=== PATIENT | female | born 1945 | race Caucasian/White ===

== ENCOUNTER 2017-02-02 17:23 | Inpatient (IN) | payer MEDICARE, OTHER ==
--- NOTE | ~2017-02-02 | CO ---
Unit #: [id number] #: [id number] Patient: ROSALINE DEMPSEY [id number] [facility]. [place], [place] [address] [id number] I MR#: [id number] NAME: ROSALINE DEMPSEY. ROOM: 340 Age: 71 Sex: F Admission Date: 02/02/2017 : 1945 Attending Physician: Bella Mahoney M.D. Primary Care Physician: Swapnil Davison M.D. Consultation Date: 02/04/2017 CONSULTATION REPORT REASON FOR CONSULTATION Mildly elevated troponin. HISTORY OF PRESENT ILLNESS The patient is a 71-year-old female who is known to [facility]. She follows with Dr. Graves. She is status post coronary artery bypass surgery in 08/1998. She has had a multitude of angioplasties since that time with stents in all 3 major coronary arteries. The patient's last intervention was on 04/30/2014. At that time, cath showed an EF of 45% to 50%, severe multivessel disease, critical stenosis of distal left main/ostial circumflex 95% to 98% stenosis, and ISR successful cutting balloon PTCA and drug-eluting stent, codominant left circumflex artery. She has a [employer] permanent pacemaker that was placed on 12/10/2014. Additional past medical history includes ischemic cardiomyopathy, systolic and diastolic CHF, hypertension, hyperlipidemia, diabetes, hypothyroidism, obstructive sleep apnea and does not tolerate CPAP, and COPD. Much of the history was obtained from chart review and previous H and P done by the hospitalist who is following the patient. Apparently, the patient was recently hospitalized at [facility] in 11/2016 for a heart-related issue. She subsequently then went to [facility] where she was discharged to rehab for approximately 2 weeks. The patient was last seen by Dr. Graves on 01/03/2017, while in the hospital. The patient's family reports that she has been confused off and on for the past couple of months and has become increasingly worse over the past 3 or 4 days, and hence, they brought her back to the hospital. In the emergency department, the patient's pulse was found to be 109 and blood pressure 131/88. Her laboratories notable for findings concerning for urinary tract infection. Her sodium was found to be 123 and creatinine of 1.9. She was admitted to [facility] for further evaluation. Cardiology was consulted for troponin of 0.21 and for congestive heart failure. PAST MEDICAL HISTORY 1. Cardiac cath from 04/30/2014 shows an EF of 45% to 50% with severe multivessel disease. Critical stenosis of the distal left main/ostial circumflex of 95% to 98%. ISR successful cutting balloon PTCA and drug-eluting stent. Codominant left circumflex. 2. [employer] permanent pacemaker placed on 12/10/2014. 3. History of CABG in 08/2007, with multi stent placements. 4. Extensive coronary artery disease. 5. Ischemic cardiomyopathy with an LVEF of 30% per echo on 02/04/2017. Unit #: [id number] #: [id number] Patient: ROSALINE DEMPSEY 6. Hypertension. 7. Hyperlipidemia. 8. Anemia. 9. Mild aortic stenosis with peak gradient of 22 mmHg and a mean of 16 mmHg. 10. Yfbcxkjs-fb-frqkkp TR. 11. Hqgc-xn-gfjpqbez WY/MR. 12. Chronic respiratory failure, on 3.5L of oxygen. 13. Obstructive sleep apnea, noncompliant with CPAP. 14. GERD. 15. Recent hospitalization to [facility] from 01/16 through 01/20 for generalized weakness and urinary tract infection with a discharge to rehab. PAST SURGICAL HISTORY 1. Carotid endarterectomy. 2. Hernia repair. 3. Coronary artery bypass grafting. 4. Permanent pacemaker placement. 5. Hysterectomy. 6. Cardiac stents. 7. Foot surgery. ALLERGIES Adhesive tape and latex. HOME MEDICATIONS Synthroid 175 mcg p.o. daily, Bumex 2 mg p.o. b.i.d., Protonix 40 mg p.o. daily, Effient 10 mg p.o. daily, losartan 50 mg p.o. daily, Norvasc 10 mg p.o. daily, aspirin 81 mg p.o. daily, sertraline 75 mg p.o. daily, Aldactone 25 mg p.o. daily, acetazolamide 250 mg p.o. daily, Zanaflex 4 mg p.o. daily, albuterol sulfate one puff every 6 hours, Symbicort 160/4.5 mcg 2 puffs inhalation b.i.d., Wellbutrin 150 mg p.o. b.i.d., Carvedilol 12.5 mg p.o. b.i.d., Ranexa 1000 mg p.o. b.i.d., Imdur-ER 60 mg p.o. b.i.d., digoxin 125 mcg every other day, lovastatin 10 mg p.o. daily, Singulair 10 mg p.o. daily, nitroglycerin 0.4 mg sublingual to take as directed, Ventolin 2 puffs inhalation every 4 hours p.r.n. shortness of breath, next Colace 100 mg p.o. b.i.d., Humibid LA 600 mg p.o. b.i.d., Benadryl 25 mg p.o. q.6 h. p.r.n. itching, Zofran 4 mg p.o. every 6 hours p.r.n. nausea, Icy Hot cream apply 3 times daily p.r.n. to the affected area, NovoLog 70/30 of 10 units subcutaneously daily, NovoLog sliding-scale insulin, and Tylenol 650 mg p.o. q.6 h. p.r.n. pain. FAMILY HISTORY Notable for her mother having Bright disease and dying at the age of 38, her father at the age of 34 of cause unknown. SOCIAL HISTORY The patient is currently at rehab, but typically lives at home with her son. She walks with a walker. She is a full code. She is a reformed smoker. PHYSICAL EXAMINATION GENERAL: The patient is awake, in no acute distress. VITAL SIGNS: Temperature 98.2, heart rate 62, respirations 18, blood pressure 93/46, and she is oxygenating 96%. HEENT: Head is atraumatic and normocephalic. Pupils equal, round, and reactive. Extraocular movements are intact. No drainage from ears or nose. Unit #: [id number] #: [id number] Patient: ROSALINE DEMPSEY NECK: Supple. Trachea is midline. CARDIOVASCULAR: Regular rate and rhythm. LUNGS: Diminished. ABDOMEN: Soft, nontender, and nondistended. Bowel sounds positive in all four quadrants. SKIN: Appears to be warm, dry, and intact. EXTREMITIES: There is +1 bilateral lower extremity edema. NEUROLOGIC: The patient is oriented to person. She is moving all extremities. DIAGNOSTIC STUDIES LABORATORY RESULTS: White blood cells 4.1, hemoglobin 7.3, hematocrit 23.4, and platelets 141. Sodium 132, potassium 4.2, chloride 97, CO2 of 29, BUN 24, creatinine 0.9, and glucose 162. BNP is 1117. Preliminary blood cultures are negative x2. ASSESSMENT 1. Toxic metabolic encephalopathy. 2. Urinary tract infection, culture pending. 3. Acute kidney injury with urinary retention. 4. Volume depletion. 5. Anemia. 6. Troponin of 0.21. 7. Acute likely on chronic systolic congestive heart failure and Left ventricular ejection fraction of 30% per echo in 01/2010. 8. Chronic diastolic congestive heart failure. 9. Ischemic cardiomyopathy. 10. Mild aortic stenosis with peak gradient of 22 mmHg with a mean of 16 mmHg. 11. Rlch-ai-fksiak tricuspid regurgitation. 12. Izas-vu-jgawcvma pulmonary regurgitation/mitral regurgitation. 13. Permanent pacemaker. PLAN At this time, we will continue to follow. Dr. Tong has seen the patient. A repeat 2D echo and Doppler has been ordered. The patient's telemetry is stable at this time. Further recommendations will be dictated for Dr. Tong. Dictated by... Zina Peterson A.P.R.N. for Gagan Tong M.D. AM/murphy TD: 02/06/2017 13:15 JOB #: [id number] CONSULTATION REPORT Page 1 of 1 X Zina Peterson [employer] CONDITIONING [employer]PER[employer] X CONSULTATION REPORT
--- NOTE | ~2017-02-02 | CR72 ---
[facility] A Service of [facility] RADIOLOGY TEXT RESULTS PATIENT: ROSALINE DEMPSEY LOCATION: [facility] 340-01 : 43 UNIT #: [id number] AGE: [address]: Bella Mahoney MD SEX: F ORDER DR: [id number] [facility] [address] [place], [place] [address] [id number] I MR#: [id number] Acc #: [id number] NAME: ROSALINE DEMPSEY. : 1945 SEX: F STUDY DATE/TIME: 02/02/2017 18:41 UNIT: [address] ROOM: [facility] STUDY DESCRIPTION: CR Chest Single View Portable Attending Physician: Janet Maciel M.D. Ordering Physician: Sathya Christopher M.D. Primary Care Physician: Swapnil Davison M.D. MEDICAL IMAGING REPORT This report is preliminary unless electronic signature is present EXAM Portable chest, 02/02/2017 HISTORY 71-year-old female with shortness of air and altered mental status today. Essential hypertension. COPD. COMPARISON Chest 01/17/2017 FINDINGS Frontal chest demonstrates stable cardiomegaly. Mediastinum and pulmonary vasculature unremarkable. Left-sided pacing complex. Median sternotomy wires. Lungs are clear. No pneumothorax. IMPRESSION Stable cardiomegaly. No other acute chest findings. Dictated by... Prem Olivarez M.D. THIS IS AN ELECTRONICALLY VERIFIED REPORT Prem Olivarez M.D. at 02/03/2017 9:11 AM Vishal TD: 02/02/2017 21:56 JOB #: [id number] MEDICAL IMAGING REPORT Page 1 of 1 COPY
--- NOTE | ~2017-02-02 | EKG ---
PATIENT: ROSALINE DEMPSEY UNIT #: [id number] Ventricular Rate: 60 BPM Atrial Rate: 60 BPM P-R Interval: 80 ms QRS Duration: 198 ms Q-T Interval: 476 ms QTC Calculation(Bezet): 476 ms Calculated R [place]: -72 degrees Calculated T [place]: 102 degrees Diagnosis Line: AV dual-paced rhythm Diagnosis Line: Abnormal ECG Diagnosis Line: When compared with ECG of 17-MAY-2012 16:15, Diagnosis Line: No significant change was found Diagnosis Line: Confirmed by ESTELA ORTIZ MD ([id number]) on 02/05/2017 Diagnosis Line: 4:08:39 PM INTERPRETING MD: ANGEL VAZQUEZ
--- NOTE | ~2017-02-02 | CO ---
Unit #: [id number] #: [id number] Patient: ROSALINE VIVAR [id number] [facility]. [place], [place] [address] [id number] I MR#: [id number] NAME: ROSALINE VIVAR. ROOM: 340 Age: 71 Sex: F Admission Date: 02/02/2017 : 1945 Attending Physician: Bella Mahoney M.D. Primary Care Physician: Swapnil Davison M.D. Consultation Date: 02/03/2017 CONSULTATION REPORT REASON FOR CONSULT Renal insufficiency, hyponatremia. Thank you very much for asking me to see this patient in consultation. Ms. Vivar is a 71-year-old female who presented to the hospital from rehab with several weeks of decreasing mental status, worse over the last two to three days. Upon presentation here yesterday, she was noted to have a sodium of 123, BUN of 55, creatinine of 1.9. We were consulted yesterday afternoon or evening. Reviewing the patient's records both here and extensive review at [facility] where she was in in November 2016, she has history of atherosclerotic coronary artery disease with congestive heart failure, decreased EF of 25% there. In November there, she underwent a heart catheterization where she presented for congestive heart failure and, according to the note, it says medical management. She also was dig toxic at that time and she was discharged home on every other day digoxin. She apparently went somewhere to rehab and then maybe back to [facility] or home, not sure after [place], but ended up at [facility] where she apparently weak and had a UTI and was treated with cephalosporin. Currently, she is very confused, difficult to arouse and really won't answer any questions. Again, the rest of the history is from multiple charts. PAST MEDICAL HISTORY 1. History of hypertension. 2. History of hyperlipidemia. 3. History of atherosclerotic coronary artery disease with a history of cardiomyopathy, decreased EF of 25%. 4. Questionable history of endocarditis in the past. She is status post coronary artery bypass graft in the past, status post pacemaker in the past, status post stents in the past. Again, underwent a heart catheterization in November of this year. The patient's creatinine was 1.1 by note when she left [facility]. 5. She has a history of COPD. 6. History of obstructive sleep apnea. 7. History of peripheral vascular disease, status post bilateral endarterectomy. 8. History of gastroesophageal reflux disease, recently active apparently. 9. History of diabetes mellitus. 10. History of degenerative joint disease although I don't see that she has been on any nonsteroidals at this time. 11. She is status post hysterectomy. Unit #: [id number] #: [id number] Patient: ROSALINE VIVAR SOCIAL HISTORY She is a previous smoker. She was living with her son at home before all the hospitalizations and rehab. ALLERGIES Adhesive tape. MEDICATIONS Her medications when she left [place] were: 1. Lipitor. 2. Digoxin every other day. 3. Diamox. 4. Norvasc. 5. Aspirin. 6. Tenormin. 7. Bumex 2 mg, two tablets a day. 8. Wellbutrin. 9. Imdur. 10. Synthroid. 11. Losartan. 12. Protonix. 13. Effient 14. Ranexa. 15. Zoloft. 16. Zanaflex. 17. Also, somewhere along that line she was on spironolactone and Haldol. REVIEW OF SYSTEMS Really unable to obtain except for what is in the HPI. FAMILY HISTORY Unable to obtain. PHYSICAL EXAMINATION GENERAL: Again, she is confused. Difficult to arouse although appears comfortable. VITAL SIGNS: T max is 98.7, pulse is 60 to 109, blood pressure 97 to 131/40s to 90s. Ins not recorded, out 900. HEENT: She is normocephalic, atraumatic. Her pupils are equal and reactive to light. Her mouth is very dry. No erythema. NECK: Supple. No adenopathy. CARDIAC: She does have a regular rate and rhythm with about a 2/6 systolic ejection murmur. LUNGS: Sound fairly clear bilaterally. No wheezes, rhonchi or rales. ABDOMEN: Overweight. Bowel sounds positive. Nontender, soft. No masses felt, no hepato or organomegaly noted. EXTREMITIES: She has no lower extremity swelling. Her pulses are intact in upper and lower extremities. JOINTS: No joint pain or joint swelling. SKIN: No acute rashes. NEUROLOGICAL: Again, decreased response. : Rene catheter is in place. DIAGNOSTIC STUDIES LABORATORY: Laboratory data upon admission showed a sodium of 123, BUN of 55, creatinine of 1.9, creatinine up to 2.0 yesterday and this morning is down to 1.8. Sodium was 126 at 7:50 p.m. last night and is up to 128 now. She is currently on half normal saline at 75. Her CPK was 225, troponin Unit #: [id number] #: [id number] Patient: ROSALINE VIVAR 0.12. T-saturation was 3. TSH 5.38. Dig level was 2 upon admission. Her urine osmolarity is pending. Urine sodium as 31, hemoglobin 8.3 this morning, white count 6000, platelets 164,000. UA shows specific gravity of 1.01, no protein, 10-25 WBCs, 1+ bacteria, no RBCs. IMAGING: Her chest x-ray showed cardiomegaly only. ASSESSMENT AND PLAN 1. Hyponatremia: This is a lady who has decreased sodium upon presentation although low. I am not convinced that this is the major cause of her mental status changes. It is improving very slowly and I am going to switch her over to normal saline at 75 mL/hour and recheck a BMP later this afternoon. Certainly, she appears to probably have hypovolemic hyponatremia from decreased intake, possible overdiuresis although certainly can't rule out an syndrome of inappropriate antidiuretic hormone from her selective serotonin reuptake inhibitor or chronic obstructive pulmonary disease. Again, would have to watch for congestive heart failure with some normal saline. Certainly, will hold her Zoloft for now as well hold her Bumex, Diamox. TSH was normal. Will check a cortisol level in a.m. Wait for urine osmolarity. 2. Acute renal failure, probably secondary to volume depletion and over diuresis: She did have a heart catheterization in November and, theoretically, she could have maybe some sort of cholesterol emboli syndrome. I will go ahead and check a urine eosinophils. I do think acute renal failure is probably again related to over diuresis versus other. Again, will hold her diuretics, mild hydration, but again watch for congestive heart failure. DC her losartan for now. Check a renal ultrasound. I will check an SPEP due to her being anemic. Her urine from the renal standpoint, besides possible UTI, she had no hematuria or proteinuria so I doubt she has any type of active glomerulonephritis. Again, will check renal ultrasound and will follow. 3. Heart disease, all outlined above: Certainly when restarting her Lanoxin again once a day, she was toxic according to [place] notes. I certainly would recommend every other day. Further workup and treatment for cardiac issues per primary. 4. Decreased mental status: Again, will also DC her Zanaflex and her Benadryl. Further workup and treatment per primary. Again, improving sodium slowly. 5. Diabetes mellitus. 6. Possible urinary tract infection: Will repeat urine culture. The first one just showed kayla. 7. Gastroesophageal reflux disease: Will keep her on her PPI for now unless her renal function does not improve secondary to it sounds like she had recent acute severe reflux problems, according to the [place] note. 8. Chronic obstructive pulmonary disease. 9. Obstructive sleep apnea. Unit #: [id number] #: [id number] Patient: ROSALINE VIVAR Dictated by..Zuleima Mccallum/gavin TD: 02/03/2017 08:59 JOB #: [id number] CONSULTATION REPORT Page 1 of 1 X Shira Barrios MD X CONSULTATION REPORT
--- NOTE | ~2017-02-02 | DS ---
Unit #: [id number] #: [id number] Patient: ROSALINE DEMPSEY [id number] [address] [id number] I MR#: [id number] NAME: ROSALINE DEMPSEY ROOM: 340 Age: 71 Sex: F Admission Date: 02/02/2017 : 1945 Discharge Date: Attending Physician: Bella Mahoney M.D. Primary Care Physician: Swapnil Davison M.D. DISCHARGE SUMMARY DISCHARGE DIAGNOSES 1. Acute kidney injury. 2. Urinary retention. 3. Hypovolemic shock. 4. Cardiogenic shock. 5. Toxic metabolic encephalopathy. 6. Hyponatremia secondary to hypovolemia. 7. Vancomycin-resistant Enterococcus urinary tract infection. 8. Acute on chronic systolic heart failure. 9. Acute iron deficiency anemia. 10. Coronary artery disease. 11. Morbid obesity. 12. Chronic obstructive pulmonary disease. 13. Elevated troponins. 14. Hyperkalemia. CONSULTANTS 1. Dr. Barrios 2. Dr. Damon Chowdhury 3. Dr. Heredia PROCEDURE Upper GI endoscopy which was normal. DIAGNOSTIC STUDIES LABORATORY: Glucose 105. Blood cultures negative. Urine culture is vancomycin-resistant Enterococcus. BNP 1117. IMAGING: Ultrasound of the kidneys showed no hydronephrosis. ALLERGIES Adhesive tape and Latex. DISCHARGE MEDICATIONS 1. Albuterol 3 mL nebulizer q.6. 2. Symbicort 160 mcg 2 puffs inhalation b.i.d. 3. Flomax 0.4 p.o. daily. 4. Tylenol 650 q.4 p.r.n. 5. Zyvox 600 p.o. b.i.d., stop date February 17, 2017. 6. Zofran 4 mg q.4 p.r.n. nausea. 7. Menthol cream apply topically 3 times daily p.r.n. 8. Coreg 12.5 mg p.o. b.i.d. 9. Acetazolamide 250 mg p.o. daily. 10. Colace 100 p.o. b.i.d. p.r.n. Unit #: [id number] #: [id number] Patient: DEMPSEY,ROSALINE A 11. Bumex 2 mg p.o. b.i.d. 12. Humibid LA 600 p.o. b.i.d. p.r.n. 13. Lovastatin 10 daily. 14. NovoLog low-dose sliding scale a.c. and at bedtime. 15. Singulair 10 daily. 16. Aspirin 81 daily. 17. Ranexa 1000 p.o. b.i.d. 18. Effient 10 mg daily. 19. Protonix 40 daily. 20. Synthroid 175 mcg p.o. daily. 21. Imdur ER 60 mg p.o. b.i.d. 22. Nitroglycerin 0.4 mg sublingual p.r.n. HOSPITAL COURSE A 71-year-old admitted because of change in mental and urinary retention. Acute on chronic systolic heart failure. Patient was seen by Cardiology. Patient received diuretics. Currently compensated. She also received IV dobutamine which is off now. Hypovolemic shock initially on admission. Patient received IV fluids. Currently, blood pressure stable. Cardiogenic shock. Patient received IV dobutamine. Currently compensated. Hypovolemic hyponatremia likely from CHF. Got better with diuretics. Urinary tract infection with vancomycin-resistant Enterococcus. Currently, patient is on Zyvox. Continue with it. Chronic respiratory failure. Continue oxygen. Acute kidney injury likely from CHF. Patient received diuretics. Compensated. Toxic metabolic encephalopathy. On admission, patient was confused. Currently, she is alert and oriented x3. Urinary retention. Patient received Flomax and Rene catheter. Voiding trial before discharge or at rehab. Anemia, likely acute on chronic iron deficiency. Patient had an EGD which was negative. Patient is not a candidate for colonoscopy because of comorbidities according to Dr. Chowdhury. Chronic obstructive pulmonary disease, stable. Diabetes mellitus type 2, uncontrolled. Continue with insulin. Discussed with family. FOLLOWUP With Dr. Graves in four to six week's time. DISPOSITION Patient will be discharged to rehab. Discharge time taken is 40 minutes. Unit #: [id number] #: [id number] Patient: ROSALINE DEMPSEY Dictated by... Zuleima Cabrera TD: 02/08/2017 17:28 JOB #: [id number] CC: Zuleima Falcon M.D. Ashok Kapur, M.D. Dictated by... Zuleima Cabrera TD: 02/08/2017 17:43 JOB #: [id number] CC: Zuleima Falcon M.D. Ashok Kapur, M.D. DISCHARGE SUMMARY Page 1 of 1 X Bella Mahoney MD X DISCHARGE SUMMARY
--- NOTE | ~2017-02-02 | CO ---
Unit #: [id number] #: [id number] Patient: ROSALINE VIVAR [id number] [address] [address] [id number] I MR#: [id number] NAME: ROSALINE VIVAR. ROOM: 340 Age: 71 Sex: F Admission Date: 02/02/2017 : 1945 Attending Physician: Bella Mahoney M.D. Primary Care Physician: Swapnil Davison M.D. Consultation Date: 02/05/2017 CONSULTATION REPORT REASON FOR CONSULTATION Anemia. HISTORY Ms. Vivar is a very pleasant 71-year-old white female patient sitting up in chair and, according to her, she normally walks around inside the house and is usually active. She came with acute kidney injury and has significant congestive heart failure with an ejection fraction of 25%. During her evaluation, she has been found to be anemic. In fact, her hemoglobin had dropped from baseline hemoglobin on admission from 9 to 7.3. Her hemoglobin in the past has been as high as 12 but that was several years ago. The patient denies any history of overt GI bleeding in the form of hematemesis, melena or hematochezia. There is also no history of any abdominal pain. Her appetite is generally fairly good. PAST MEDICAL HISTORY Significant for multiple medical problems and these include: 1. Congestive heart failure with ejection fraction of 25%. She sees Dr. Graves and Dr. Talavera. 2. Coronary artery disease, status post coronary artery bypass graft with multiple stents. 3. Hypertension. 4. Hyperlipidemia. 5. COPD. 6. Chronic respiratory failure on 3.5 L of home oxygen. 7. Obstructive sleep apnea. The patient is noncompliant with CPAP therapy. 8. Peripheral arterial disease, status post endarterectomy and diabetes. 9. Gastroesophageal reflux. 10. History of degenerative joint disease. 11. History of endocarditis. 12. History of urinary tract infections in the past. PREVIOUS SURGERIES 1. Hysterectomy. 2. Foot surgery. 3. Coronary artery bypass graft. 4. Pacemaker placement. 5. Herniorrhaphy. 6. Carotid endarterectomy. SOCIAL HISTORY Unit #: [id number] #: [id number] Patient: ROSALINE VIVAR The patient is currently at rehab. She walks around with a walker. She is an ex-smoker, doesn't drink alcohol. FAMILY HISTORY Mother had Bright disease, dying at the age of 38. Father at age 34. MEDICATIONS Her medications at home included: 1. Bumex. 2. Pantoprazole. 3. Effient. 4. Losartan. 5. Acetazolamide. 6. Levothyroxine. 7. Amlodipine. 8. Aspirin. 9. Sertraline. 10. Spironolactone. Tizanidine. 11. Albuterol. 12. Symbicort. 13. Bupropion. 14. Carvedilol. 15. Ranexa. 16. Isosorbide. 17. Rocephin. 18. Haldol. 19. Digoxin. 20. Lovastatin. 21. Montelukast. 22. Nitroglycerin. 23. Acetaminophen. 24. Ventolin. 25. Mucinex. 26. Benadryl. 27. Zofran. 28. NovoLog. 29. Docusate. ALLERGIES She is allergic to latex and adhesive tape. REVIEW OF SYSTEMS A detailed review of organ systems does not reveal any recent weight loss. No history of fevers, chills, rigors, headaches, seizures, chest pain. No syncope. No history of cough, expectoration or hemoptysis. No Please note: This report has been placed on the patient's electronic medical record in an incomplete status following multiple physician notifications for a completion without a response or resolution. Dictated by... Damon Chowdhury M.D. Unit #: [id number] #: [id number] Patient: ROSALINE VIVAR/gavin TD: 02/05/2017 13:20 JOB #: [id number] CC: Froilan Hurd M.D. CONSULTATION REPORT Page 1 of 1 X Damon Chowdhury MD X CONSULTATION REPORT
--- NOTE | ~2017-02-02 | OR ---
Unit #: [id number] #: [id number] Patient: ROSALINE DEMPSEY [id number] [address] [place], [place] [address] [id number] I MR#: [id number] NAME: ROSALINE DEMPSEY. ROOM: [facility] Date of Procedure: 02/05/2017 Admission Date: 02/02/2017 Surgeon: Damon Chowdhury M.D. : 1945 Attending Physician: Bella Mahoney M.D. Primary Care Physician: Swapnil Davison M.D. OPERATIVE REPORT PRIMARY CARE PHYSICIAN MD2U. PREOPERATIVE DIAGNOSIS Iron-deficiency anemia. PROCEDURE PERFORMED Upper gastrointestinal endoscopy. POSTOPERATIVE DIAGNOSIS Completely normal examination up to third part of duodenum. RECOMMENDATIONS The patient is a poor surgical risk candidate for any intervention, therefore colonoscopy is , therefore it is unwarranted. Suggest treat with intravenous iron infusions and blood transfusion as needed. SEDATION USED Procedural sedation. A total of 2.5 mg of versed was used throughout the procedure. DESCRIPTION OF PROCEDURE Following detailed explanation of the potential risks and complications of an upper endoscopy, namely perforation, bleeding, and complication related to sedation, the patient was brought to GI lab and laid in the left lateral decubitus position. Lubricated tip of the Olympus video upper endoscope was passed through the bite block into the proximal esophagus under direct vision. The entire esophageal mucosa was examined and appeared normal. Z-line was nicely demarcated, there being no esophagitis or hiatus hernia. The scope was then advanced into the gastric cavity and the latter was insufflated. Mucosa of the fundus, body, and antrum was examined and appeared unremarkable. Pylorus was intubated with visualization of normal duodenal bulb and second and third part of the duodenum. Upon withdrawal and retroflexion, incisura, cardia, and greater curve was examined and no additional findings were noted. The scope was then withdrawn in the distal esophagus. The entire esophageal mucosa was examined all the way up to pharynx. No additional findings were noted. The patient tolerated the procedure without any postprocedure complications. Dictated by... Unit #: [id number] #: [id number] Patient: ROSALINE DEMPSEY Damon Chowdhury M.D. AK/murphy TD: 02/05/2017 13:14 JOB #: [id number] CC: Janet Maciel M.D. OPERATIVE REPORT Page 1 of 1 X Damon Chowdhury MD X PROCEDURE OPERATIVE NOTE
--- NOTE | ~2017-02-02 | HP ---
Unit #: [id number] #: [id number] Patient: ROSALINE DEMPSEY [id number] [facility]. [place], [place] [address] [id number] I MR#: [id number] NAME: ROSALINE DEMPSEY. ROOM: 340 Age: 71 Sex: F Admission Date: 02/02/2017 : 1945 Attending Physician: Janet Maciel M.D. Primary Care Physician: Swapnil Davison M.D. HISTORY AND PHYSICAL CHIEF COMPLAINT Altered mental status. HISTORY OF PRESENT ILLNESS The patient is a 71-year-old female with past medical history of hypertension, hyperlipidemia, coronary artery disease, CHF, COPD, chronic respiratory failure, obstructive sleep apnea, peripheral arterial disease, diabetes, GERD, degenerative joint disease, endocarditis, who presented to the emergency department for evaluation of the above. History is obtained from chart review and discussion with the ER staff due to the patient's altered mental status. History is also obtained from the patient's sister, Cesia Chase, who was at bedside. The patient was apparently hospitalized at [facility] in November of 2016 for a heart related issue. She subsequently went to [facility]. She was discharged to rehab about two weeks ago. The patient's sister states that she has been confused off and on for the past couple of months. She became increasingly worse over the past three to four days. She has been somewhat agitated, said there has not been any fever, no cough. She has not complained of any pain. In the emergency department pulse was 109, blood pressure 131/88. Laboratory is notable for findings concerning for urinary tract infection, sodium is 123, BUN and creatinine 56 and 1.9 respectively. She is being admitted to [facility] for evaluation and further treatment. PAST MEDICAL HISTORY 1. Admission to [facility] January 16-2016 for generalized weakness and urinary tract infection. The patient was discharged to rehab on Ceftin. There are no records. 2. CHF with unknown ejection fraction, followed by Drs. Graves and Ilan. 3. Coronary artery disease, status post coronary artery bypass grafting and multiple cardiac stents. 4. Hypertension. 5. Hyperlipidemia. 6. COPD. 7. Chronic respiratory failure on 3.5 L of oxygen. 8. Obstructive sleep apnea, noncompliant with CPAP. 9. Peripheral artery disease, status post carotid endarterectomy. 10. Diabetes. 11. Gastroesophageal reflux disease. 12. Degenerative joint disease. Unit #: [id number] #: [id number] Patient: ROSALINE DEMPSEY 13. History of endocarditis per record review. PAST SURGICAL HISTORY 1. Carotid endarterectomy. 2. Hernia repair. 3. Coronary artery bypass grafting. 4. Pacemaker placement. 5. Hysterectomy. 6. Cardiac stents. 7. Foot surgery. SOCIAL HISTORY The patient is currently at rehab but she typically lives at home with her son. She walks with a walker. Her code status is a Full Code. She is a former smoker. FAMILY HISTORY Family history is notable for her mother having Bright disease and dying at the age of 38. Her dad at the age of 34. ALLERGIES Adhesive tape and latex. HOME MEDICATIONS Levothyroxine, Bumex, pantoprazole, Effient, losartan, acetazolamide, amlodipine, aspirin, sertraline, spironolactone, tizanidine, albuterol, Symbicort, bupropion, carvedilol, Ranexa, isosorbide, Rocephin, Haldol, digoxin, lovastatin, montelukast, nitroglycerin, acetaminophen, Ventolin, docusate, Mucinex, Benadryl, Zofran, NovoLog. Home medications will need to be reviewed and verified. REVIEW OF SYSTEMS A complete review of systems is limited from the patient due to altered mental status but negative except as indicated in the HPI per the patient's sister. DIAGNOSTIC STUDIES CARDIOVASCULAR: EKG shows paced rhythm with a rate of 60 beats per minute. LABORATORY: Basic metabolic panel shows sodium of 123, chloride is 85, glucose 150, BUN and creatinine 56 and 1.9 respectively, digoxin level is 2. Urinalysis notable for 1+ leukocyte esterase, 10 to 25 white blood cells, 1+ bacteria, magnesium is 2.5. Complete blood count notable for white blood cell count of 3.8, hemoglobin 7.9, hematocrit 24.8. PHYSICAL EXAMINATION VITAL SIGNS: Temperature is 98.7. Pulse 109. Respirations 16. Blood pressure 131/88. Oxygen saturation 96% on 4 L. GENERAL: The patient is a female who is awake and alert, somewhat restless. HEENT: The head is atraumatic. Mucous membranes are moist. NECK: Neck is supple. Trachea is midline. CARDIOVASCULAR: Regular rate and rhythm. LUNGS: Relatively clear to auscultation bilaterally with no increased work of breathing. ABDOMEN: Abdomen is soft, nontender, with bowel sounds present in all Unit #: [id number] #: [id number] Patient: ROSALINE DEMPSEY four quadrants. EXTREMITIES: There is 1+ pitting edema of bilateral lower extremities. NEUROLOGIC: The patient is not oriented to person and place or time. She is restless and somewhat agitated, inattentive. She is moving all extremities. PSYCHIATRIC: The patient demonstrates poor eye contact. She is not cooperative. SKIN: Skin of examined areas is warm and dry. ASSESSMENT The patient is a 71-year-old female with: 1. Altered mental status. 2. Urinary tract infection. Rocephin is listed on the patient's current medication list. It is unclear when she last received Rocephin. 3. Acute kidney injury. The patient's creatinine was 0.6 on November 14, 2012. It is 1.9 today. 4. Hyponatremia. The patient's sodium has been as low as 126 on May 17, 2012. It is 123 today. 5. Anemia. The patient's hemoglobin was 11.3 on November 14, 2012. It is 7.9 today. 6. Hypertension. 7. Hyperlipidemia. 8. Coronary artery disease, status post coronary artery bypass grafting and multiple stents. 9. Congestive heart failure with unknown ejection fraction. 10. Chronic obstructive pulmonary disease. 11. Chronic respiratory failure on 3.5 to 4 L of oxygen per nasal cannula. 12. Obstructive sleep apnea, noncompliant with CPAP. 13. Peripheral arterial disease, status post carotid endarterectomy. 14. Diabetes. 15. Gastroesophageal reflux disease. 16. Degenerative joint disease. 17. History of endocarditis. 18. Former smoker. PLAN 1. Admit to intermediate level. 2. N.p.o. except medications until speech evaluation. 3. Speech Therapy to evaluate and treat. 4. Bedrest. 5. Fall precautions. 6. Neuro checks. 7. TSH, B12 and folate. 8. Blood cultures x2. 9. Urine culture and sensitivity on urine in the lab. 10. Rocephin 1 g IV daily with first dose now. 11. Sitter. 12. Urine sodium and osmolality. 13. Serum osmolality. 14. Chest x-ray for further evaluation of hyponatremia and altered mental status. 15. Normal saline at 75 mL an hour. 16. Repeat BMP and magnesium now. 17. Consult Dr. Barrios regarding hyponatremia. 18. Strict Is and Os. 19. Check EKG and cardiac enzymes. 20. Get records from [facility]. Unit #: [id number] #: [id number] Patient: ROSALINE DEMPSEY 21. Supplemental oxygen. 22. P.r.n. DuoNebs. 23. Hemoglobin and hematocrit q.6 h. 24. Hemoccult stool. 25. Iron studies. 26. Hemoglobin A1C. 27. Low dose sliding-scale insulin with Accu-Cheks. 28. Repeat labs in the morning. 29. Additional workup and consultants based on above. 30. Regarding code status, the patient is a Full Code. Dictated by Janet Maciel M.D. PATTIE/andrew TD: 02/02/2017 21:27 JOB #: [id number] HISTORY AND PHYSICAL Page 1 of 1 X Janet Maciel MD X HISTORY AND PHYSICAL
--- NOTE | ~2017-02-02 | CR72 ---
[facility] A Service of [facility] RADIOLOGY TEXT RESULTS PATIENT: ROSALINE DEMPSEY LOCATION: [facility] 340-01 : [birth year] UNIT #: [id number] AGE: [address]: Bella Mahoney MD SEX: F ORDER DR: [id number] [facility] [address] [place], [place] [address] [id number] I MR#: [id number] Acc #: [id number] NAME: ROSALINE DEMPSEY : 1945 SEX: F STUDY DATE/TIME: 02/05/2017 19:11 UNIT: [address] ROOM: [facility] STUDY DESCRIPTION: CR Chest Single View Portable Attending Physician: Bella Mahoney M.D. Ordering Physician: Bella Mahoney M.D. Primary Care Physician: Swapnil Davison M.D. MEDICAL IMAGING REPORT This report is preliminary unless electronic signature is present EXAM Single view of the chest, 02/05/2017 at 1911 hours. COMPARISON Single view chest dated 02/02/2017 at 1841 hours. HISTORY PICC placement. FINDINGS Single view of the chest was obtained. New right subclavian approach PICC line catheter tip is probably in the SVC. There are overlying pacemaker leads slightly limiting evaluation. Postoperative cardiac changes are redemonstrated with stable cardiomegaly. No significant new pulmonary disease. Dictated by... Dona Lawson M.D. THIS IS AN ELECTRONICALLY VERIFIED REPORT Dona Lawson M.D. at 02/06/2017 5:13 PM CPR/ljd TD: 02/06/2017 03:12 JOB #: [id number] MEDICAL IMAGING REPORT Page 1 of 1 COPY
--- NOTE | ~2017-02-02 | US77 ---
[facility] A Service of [facility] RADIOLOGY TEXT RESULTS PATIENT: ROSALINE DEMPSEY LOCATION: [facility] 340- : 43 UNIT #: [id number] AGE: [address]: Bella Mahoney MD SEX: F ORDER DR: [id number] [facility] [address] [place], [place] [address] [id number] I MR#: [id number] Acc #: [id number] NAME: ROSALINE DEMPSEY : 1945 SEX: F STUDY DATE/TIME: 02/03/2017 9:42 UNIT: [address] ROOM: [facility] STUDY DESCRIPTION: US Kidney Bilateral Complete Attending Physician: Bella Mahoney M.D. Ordering Physician: Bella Mahoney M.D. Primary Care Physician: Swapnil Davison M.D. MEDICAL IMAGING REPORT This report is preliminary unless electronic signature is present EXAM Bilateral renal ultrasound. HISTORY Acute renal failure. Elevated creatinine. FINDINGS Ultrasound examination of both kidneys demonstrates no renal mass. No hydronephrosis. Mild generalized bilateral renal parenchymal atrophy. 1.4 cm cortical cyst mid right kidney. Urinary bladder is decompressed by a Rene catheter. No perinephric fluid collection. IMPRESSION 1. Mild bilateral renal parenchymal atrophy. 2. No hydronephrosis. No suspicious renal mass. 3. Incidental small right renal cyst. 4. The urinary bladder is decompressed by a Rene catheter. Dictated by... Carlos Dean M.D. THIS IS AN ELECTRONICALLY VERIFIED REPORT Carlos Dean M.D. at 02/03/2017 11:10 PM MARYCRUZ/vick TD: 02/03/2017 17:11 JOB #: [id number] MEDICAL IMAGING REPORT Page 1 of 1 COPY
[~2017-02-02 17:23] MED LIST: ADALATCC; ADALATCC PO; ALBUTEROL17 GM INH; ASPIRIN ENTERI325 M1 PO; ASPIRIN PO; ASPIRINEC; ATENOLOL; ATENOLOL PO; ATENOLOL25 MG PO; BUSPAR PO; BUSPAR15 MG PO; CALCIUM + VITAM1 TAB PO; CALCIUM CITRATE1 T12 PO; CARDURA2 MG PO; CETIRIZINE HCL10 MG PO; CLARITIN10 MG PO; COLACE PO; COMBIVENT MININEB INH; CYANOCOBAL1000 MCG/M INJ; CYANOCOBAL1000 MCG/M SUBQ; DIGOXIN125 MCG PO; DOC-Q-LACE100 MG PO; DOXAZOSIN MESYLA2 MG PO; FUROSEMIDE40 MG PO; HUMALOG MIX 75/10 ML SUBQ; HUMALOG MIX 75/23 ML SUBQ; HUMULIN 70/30 V10 ML; HYDROCODON-ACE1 EAC3 PO; HYDROXYZINE HCL25 M1 PO; IMDUR; IMDUR PO; IMDUR-ER60 MG PO; ISONIAZID300 MG PO; ISOSORBIDE MONO60 M1 PO; KEFLEX PO; LANOXIN; LANOXIN PO; LASIX PO; LASIX20 MG PO; LEVAQUIN PO; LEVOTHROID125 MCG PO; LISINOPRIL; LISINOPRIL PO; LORTAB 10/500 T1 TAB; MEDROL PO; MUCINEX DM1 TAB.SR .; MUCINEX PO; MUCOSA400 MG PO; MYCOSTATIN15 GM; MYSOLINE250 M1 PO; NASACORT AQ16.5 GM; NASONEX17 GM; NASONEX17 GM IH; NIFEDIPINE ER90 M1 PO; NITROGYLCERIN; NITROGYLCERIN SUBLINGUAL; NITROSTAT0.4 MG SL; NOVOLIN 70/30 V10 ML INJ; NOVOLOG MI100 UNIT/1 SQ; PACERONE PO; PHENERGAN PO; PLAVIX; PLAVIX PO; PRILOSEC; PRILOSEC PO; PRIMIDONE250 MG PO; RANEXA PO; RANEXA1000 MG PO; RANITIDINE HCL150 M1 PO; REGLAN; REGLAN PO; RESTORIL15 MG PO; SERTRALINE HCL50 M1 PO; SIMVASTATIN40 MG PO; SYMBICORT80 INH; SYNTHROID; SYNTHROID PO; TEMAZEPAM; TEMAZEPAM PO; TEMOVATE30 GM TOP; TYLENOL325 M1 PO; VESICARE PO; VICODIN 5/500 T1 TAB PO; ZANAFLEX; ZANAFLEX PO; ZANAFLEX4 M1 PO; ZOCOR PO; ZOFRAN PO; ZOLOFT; ZOLOFT PO; [UNRECOGNIZED DRUG - OTHER]; [UNRECOGNIZED DRUG - OTHER]; [UNRECOGNIZED DRUG - REMARK]
[2017-02-02] MEDS ORDERED: SYNTHROID175 MCG PO (19:52)
[2017-02-02] MEDS ORDERED: PROTONIX PO (19:52)
[2017-02-02] MEDS ORDERED: BUMEX2 MG PO (19:52)
[2017-02-02] MEDS ORDERED: EFFIENT10 MG PO (19:52)
[2017-02-02] MEDS ORDERED: LOSARTAN POTASS50 MG PO (19:53)
[2017-02-02] MEDS ORDERED: ALDACTONE25 MG PO (19:53)
[2017-02-02] MEDS ORDERED: SERTRALINE HCL25 M2 PO (19:53)
[2017-02-02] MEDS ORDERED: ACETAZOLAMIDE250 MG PO (19:53)
[2017-02-02] MEDS ORDERED: BAYER CHEWABLE81 MG PO (19:53)
[2017-02-02] MEDS ORDERED: NORVASC10 MG PO (19:53)
[2017-02-02] MEDS ORDERED: ALBUTEROL2.5 MG/3 M INH (19:54)
[2017-02-02] MEDS ORDERED: ZANAFLEX4 M1 PO (19:54)
[2017-02-02] MEDS ORDERED: SYMBICORT INH (19:54)
[2017-02-02] MEDS ORDERED: RANEXA1000 MG PO (19:55)
[2017-02-02] MEDS ORDERED: IMDUR-ER60 M2 PO (19:55)
[2017-02-02] MEDS ORDERED: COREG12.5 MG PO (19:55)
[2017-02-02] MEDS ORDERED: WELLBUTRIN SR150 M1 PO (19:55)
[2017-02-02] MEDS ORDERED: DIGITEK125 MC1 PO (19:56)
[2017-02-02] MEDS ORDERED: MONTELUKAST SOD10 MG PO (19:56)
[2017-02-02] MEDS ORDERED: NITROGLYGERIN0.4 MG SL (19:56)
[2017-02-02] MEDS ORDERED: LOVASTATIN10 MG PO (19:56)
[2017-02-02] MEDS ORDERED: ALBUTEROL17 GM INH (19:57)
[2017-02-02] MEDS ORDERED: DOCUSATE SODIU100 MG PO (19:57)
[2017-02-02] MEDS ORDERED: ZOFRAN PO (19:58)
[2017-02-02] MEDS ORDERED: BENADRYL25 M3 PO (19:58)
[2017-02-02] MEDS ORDERED: HUMIBID-LA600 MG PO (19:58)
[2017-02-02] MEDS ORDERED: NOVOLOG7030 SUBQ (19:59)
[2017-02-02] MEDS ORDERED: ICY HOT CREAM35.4 GM TOP (19:59)
[2017-02-02] MEDS ORDERED: NOVOLOG100 U/ML (20:00)
[2017-02-02] MEDS ORDERED: TYLENOL325 M1 PO (20:01)
[2017-02-02 20:42] LABS: CALCIUM SERUM 8.8 mg/dL (8.4-10.2); GLOM FILT RATE Estimated 24.2 mL/min (>60); MAGNESIUM 2.7 mg/dL (1.6-3.0); POTASSIUM 5.1 mmol/L (3.5-5.1)
[2017-02-02 21:00] LABS: MB 8.1 ng/ml
[2017-02-02 22:10] LABS: HEMATOCRIT 24.7 % (35.0-45.0); HEMOGLOBIN 7.8 gm/dL (12.0-16.0)
[2017-02-02 22:54] LABS: IRON SERUM 13 ug/dL (28-170); TOTAL IRON BINDING CAPACITY 421 ug/dL (269-535); TRANSFERRIN 300 mg/dL (192-382); TRANSFERRIN SATURATION 3 % (20-50)
[2017-02-02 23:15] LABS: FOLATE (FOLIC ACID) 12.1 ng/mL (>5.8)
[2017-02-03 03:24] LABS: HEMATOCRIT 25.9 % (35.0-45.0); HEMOGLOBIN 8.3 gm/dL (12.0-16.0); MEAN CELL VOLUME 89.5 FL (83-96); MEAN CORPUSCULAR HEMOGLOBIN 28.5 PG (28-34); MEAN CORPUSCULAR HGB CONC 31.9 g/dL (30-36); MEAN PLATELET VOLUME 9.7 FL (6.5-11.5); RED BLOOD COUNT 2.9 X10e (3.90-5.30); RED CELL DISTRIBUTION WIDTH 18.4 % (11.0-15.5)
[2017-02-03 03:46] LABS: ALBUMIN SERUM 3.9 g/dL (3.5-5.0); BUN/CREATININE RATIO 33.33; CALCIUM SERUM 8.6 mg/dL (8.4-10.2); CREATININE SERUM 1.8 mg/dL (0.6-1.4); GLOM FILT RATE Estimated 27.4 mL/min (>60); POTASSIUM 4.4 mmol/L (3.5-5.1); PROTEIN TOTAL SERUM 6.3 g/dL (6.0-8.3)
[2017-02-03 04:06] LABS: %MB 3.3 % (0.0-4.0); MB 7.4 ng/ml
[2017-02-03 07:01] LABS: SODIUM URINE RANDOM 31 mmol/L
[2017-02-03 09:01] LABS: OSMOLALITY,URINE 395 mOsmo/kg (250-900)
[2017-02-03 09:13] LABS: HEMATOCRIT 29.3 % (35.0-45.0); HEMOGLOBIN 9.1 gm/dL (12.0-16.0)
[2017-02-03 10:02] LABS: %MB 3.2 % (0.0-4.0); MB 9.4 ng/ml
[2017-02-03 14:39] LABS: BUN/CREATININE RATIO 32.5; CALCIUM SERUM 8.8 mg/dL (8.4-10.2); CREATININE SERUM 1.6 mg/dL (0.6-1.4); GLOM FILT RATE Estimated 31.6 mL/min (>60); POTASSIUM 4.7 mmol/L (3.5-5.1)
[2017-02-03 15:02] LABS: HEMOGLOBIN 8.8 gm/dL (12.0-16.0)
[2017-02-04 07:04] LABS: HEMATOCRIT 24.4 % (35.0-45.0); HEMOGLOBIN 7.6 gm/dL (12.0-16.0); MEAN CELL VOLUME 89.9 FL (83-96); MEAN CORPUSCULAR HEMOGLOBIN 28.1 PG (28-34); MEAN CORPUSCULAR HGB CONC 31.3 g/dL (30-36); MEAN PLATELET VOLUME 8.8 FL (6.5-11.5); RED BLOOD COUNT 2.71 X10e (3.90-5.30); RED CELL DISTRIBUTION WIDTH 18.2 % (11.0-15.5); WHITE BLOOD COUNT 4.1 X10e3 (4.0-10.5)
[2017-02-04 08:26] LABS: ALBUMIN SERUM 3.3 g/dL (3.5-5.0); BILIRUBIN,TOTAL 0.7 mg/dL (0.2-2.0); BUN/CREATININE RATIO 29.16; CALCIUM SERUM 8.1 mg/dL (8.4-10.2); CREATININE SERUM 1.2 mg/dL (0.6-1.4); GLOM FILT RATE Estimated 44.8 mL/min (>60); MAGNESIUM 2.3 mg/dL (1.6-3.0); PHOSPHOROUS 3.1 mg/dL (2.5-4.6); POTASSIUM 4.1 mmol/L (3.5-5.1)
[2017-02-04 23:56] LABS: CALCIUM SERUM 8.3 mg/dL (8.4-10.2); CREATININE SERUM 0.9 mg/dL (0.6-1.4); GLOM FILT RATE Estimated 63.5 mL/min (>60); POTASSIUM 4.2 mmol/L (3.5-5.1)
[2017-02-05 05:42] LABS: BASOPHIL% 0.3 % (0-2.5); EOSINOPHIL# 0.2 X10e3 (0-0.7); EOSINOPHIL% 3.7 % (0.0-7.0); HEMATOCRIT 23.4 % (35.0-45.0); HEMOGLOBIN 7.3 gm/dL (12.0-16.0); LYMPHOCYTE# 0.4 X10e3 (1.0-3.5); MEAN CELL VOLUME 89.9 FL (83-96); MEAN CORPUSCULAR HGB CONC 31.2 g/dL (30-36); MONOCYTE# 0.3 X10e3 (0-1.0); MONOCYTE% 8.2 % (3.0-12.0); NEUTROPHIL# 3.2 X10e3 (1.5-7.1); NEUTROPHIL% 78.8 % (40-75); PLATELET COUNT 141 X10e3 (140-420); RED BLOOD COUNT 2.61 X10e (3.90-5.30); RED CELL DISTRIBUTION WIDTH 17.9 % (11.0-15.5); WHITE BLOOD COUNT 4.1 X10e3 (4.0-10.5)
[2017-02-05 05:46] LABS: DIFF IND YES
[2017-02-05 06:35] LABS: BUN/CREATININE RATIO 26.66; CALCIUM SERUM 8.3 mg/dL (8.4-10.2); CREATININE SERUM 0.9 mg/dL (0.6-1.4); GLOM FILT RATE Estimated 63.5 mL/min (>60); POTASSIUM 4.2 mmol/L (3.5-5.1)
[2017-02-05 06:54] LABS: PLATELET ESTIMATE NORMAL (NORMAL)
[2017-02-05 06:55] LABS: ANISOCYTOSIS SL; HYPOCHROMIA SL
[2017-02-06 06:54] LABS: HEMATOCRIT 25.3 % (35.0-45.0); MEAN CELL VOLUME 87.8 FL (83-96); MEAN CORPUSCULAR HEMOGLOBIN 27.7 PG (28-34); MEAN CORPUSCULAR HGB CONC 31.6 g/dL (30-36); MEAN PLATELET VOLUME 8.6 FL (6.5-11.5); RED BLOOD COUNT 2.88 X10e (3.90-5.30); WHITE BLOOD COUNT 3.9 X10e3 (4.0-10.5)
[2017-02-06 07:12] LABS: ALBUMIN SERUM 3.7 g/dL (3.5-5.0); BILIRUBIN,TOTAL 0.9 mg/dL (0.2-2.0); BUN/CREATININE RATIO 24.44; CALCIUM SERUM 8.6 mg/dL (8.4-10.2); CREATININE SERUM 0.9 mg/dL (0.6-1.4); GLOM FILT RATE Estimated 63.5 mL/min (>60); MAGNESIUM 2.1 mg/dL (1.6-3.0); POTASSIUM 4.7 mmol/L (3.5-5.1); PROTEIN TOTAL SERUM 6.4 g/dL (6.0-8.3)
[2017-02-07 05:35] LABS: HEMATOCRIT 26.3 % (35.0-45.0); HEMOGLOBIN 8.1 gm/dL (12.0-16.0); MEAN CELL VOLUME 88.9 FL (83-96); MEAN CORPUSCULAR HEMOGLOBIN 27.5 PG (28-34); MEAN PLATELET VOLUME 8.7 FL (6.5-11.5); RED BLOOD COUNT 2.95 X10e (3.90-5.30); RED CELL DISTRIBUTION WIDTH 17.8 % (11.0-15.5); WHITE BLOOD COUNT 4.1 X10e3 (4.0-10.5)
[2017-02-07 07:10] LABS: BUN/CREATININE RATIO 22.5; CALCIUM SERUM 8.7 mg/dL (8.4-10.2); CREATININE SERUM 0.8 mg/dL (0.6-1.4); GLOM FILT RATE Estimated 73.2 mL/min (>60); MAGNESIUM 2.1 mg/dL (1.6-3.0); PHOSPHOROUS 2.8 mg/dL (2.5-4.6); POTASSIUM 5.2 mmol/L (3.5-5.1)
[2017-02-08 07:07] LABS: BUN/CREATININE RATIO 22.5; CALCIUM SERUM 8.6 mg/dL (8.4-10.2); CREATININE SERUM 0.8 mg/dL (0.6-1.4); GLOM FILT RATE Estimated 73.2 mL/min (>60)
== END 2017-02-08 18:37 | DRG 291 ==
LOC: CED 17:23 → CEDOF 19:27 → CED 19:51 → C3A PCU 19:51 → CEDOF 20:18 → C3A PCU 02-03 07:23
PROVIDERS: Family Medicine; Internal Medicine; Internal Medicine Cardiovascular Disease; Internal Medicine Nephrology; Nurse Practitioner
PROC: B24BYZZ Ultrasonography of Heart with Aorta using Other Contrast (ICD-10-PCS; 2017-02-04)
PROC: 0DJ08ZZ Inspection of Upper Intestinal Tract, Via Natural or Artificial Opening Endoscopic (ICD-10-PCS; principal; 2017-02-05)
PROC: 30233N1 Transfusion of Nonautologous Red Blood Cells into Peripheral Vein, Percutaneous Approach (ICD-10-PCS; 2017-02-05)
PROC: 02HV33Z Insertion of Infusion Device into Superior Vena Cava, Percutaneous Approach (ICD-10-PCS; 2017-02-05)
DX: I11.0 Hypertensive heart disease with heart failure (principal); R57.1 Hypovolemic shock; G92 Toxic encephalopathy; N17.9 Acute kidney failure, unspecified; R57.0 Cardiogenic shock; J96.10 Chronic respiratory failure, unspecified whether with hypoxia or hypercapnia; N39.0 Urinary tract infection, site not specified; E87.1 Hypo-osmolality and hyponatremia; I50.23 Acute on chronic systolic (congestive) heart failure; D50.9 Iron deficiency anemia, unspecified; E78.5 Hyperlipidemia, unspecified; I25.10 Atherosclerotic heart disease of native coronary artery without angina pectoris; J44.9 Chronic obstructive pulmonary disease, unspecified; G47.33 Obstructive sleep apnea (adult) (pediatric); I73.9 Peripheral vascular disease, unspecified; Z91.19 Patient's noncompliance with other medical treatment and regimen; K21.9 Gastro-esophageal reflux disease without esophagitis; Z95.1 Presence of aortocoronary bypass graft; Z90.710 Acquired absence of both cervix and uterus; Z95.0 Presence of cardiac pacemaker; Z99.81 Dependence on supplemental oxygen; Z87.891 Personal history of nicotine dependence; I25.5 Ischemic cardiomyopathy; I08.3 Combined rheumatic disorders of mitral, aortic and tricuspid valves; E87.5 Hyperkalemia; B95.2 Enterococcus as the cause of diseases classified elsewhere; R33.9 Retention of urine, unspecified; E66.01 Morbid (severe) obesity due to excess calories; R74.9 Abnormal serum enzyme level, unspecified; E11.65 Type 2 diabetes mellitus with hyperglycemia; Z79.4 Long term (current) use of insulin; Z68.39 Body mass index [BMI] 39.0-39.9, adult
CPT/HCPCS: 71010; 76770; 80048; 80053; 80162; 82533; 82550; 82553; 82607; 82728; 82746; 82947; 83036; 83540; 83550; 83735; 83880; 83930; 83935; 84100; 84300; 84443; 84484; 85014; 85018; 85025; 85027; 86334; 86850; 86900; 86901; 86923; 87040; 87086; 87088; 87186; 89190; 92526; 92610; 93005; 93306; 94640; 94664; 94760; 97110; 97116; 97163; 97165; 97530; 97535; 99285; G8978-GP; G8979-GP; G8987-GO; G8988-GO; G8996-GN; G8997-GN; G8998-GN; J0696; J1250; J1815; J2060; J2916; P9016

== ENCOUNTER 2017-03-02 13:28 | Inpatient (IN) | payer MEDICARE, OTHER ==
--- NOTE | ~2017-03-02 | CO ---
Unit #: [id number] #: [id number] Patient: ROSALINE DEMPSEY [id number] [facility]. [address] [place], [place] [address] [id number] I MR#: [id number] NAME: ROSALINE DEMPSEY. ROOM: 301 Age: 71 Sex: F Admission Date: 03/02/2017 : 1945 Attending Physician: Irene Cristina M.D. Primary Care Physician: Swapnil Davison M.D. Consultation Date: 03/03/2017 CONSULTATION REPORT REASON FOR CONSULTATION Congestive heart failure. HISTORY OF PRESENTING ILLNESS This is a 71-year-old female known to Dr. Graves with a prior history of recent admission February 02 to February 08 with acute kidney injury, toxic metabolic encephalopathy and acute systolic congestive heart failure. She also has a history of coronary artery disease status post CABG in 2005 and multiple stents in the past. Her last cardiac cath done April 30, 2014 revealed EF 45% to 50%, severe multivessel disease with critical stenosis of the distal left main and ostial circumflex 98% status post PTCA and drug-eluting stent. She also has a history of permanent pacemaker in 2014, hypertension, hyperlipidemia, diabetes mellitus, ischemic cardiomyopathy with an EF of 30% per echo February 04, 2017 and mild aortic stenosis. She has chronic respiratory failure and is on O2 at 3 liters at home, as well as COPD and obstructive sleep apnea. She presented to the ER with increasing dyspnea over several days and PND, orthopnea, abdominal swelling. She states she has not had a recent illness with fever, chills, nausea, vomiting or diarrhea. She has been taking her medications and adhering to her fluid restrictions, she states. In the ER she was found to have severe anemia with a hemoglobin of 6.9. Her chest x-ray showed mild cardiomegaly with no change from her last x-ray February 05. BNP was elevated at 1,652, and her xbsvz-mc-phcq troponin was less than 0.05. PAST MEDICAL HISTORY 1. Coronary artery disease status post CABG in 2007. 2. Cardiac cath 04/30/2014 showed EF 45% to 50% with severe multivessel disease. Critical stenosis of the distal left main, ostial circumflex 98%, ISR successful cutting balloon PTCA and drug-eluting stent. Codominant left circumflex. 3. [employer] permanent pacemaker in November 2014. 4. Hypertension. 5. Hyperlipidemia. 6. Ischemic cardiomyopathy with EF 30% per echo February 04, 2017. 7. Diabetes mellitus. 8. Valvular heart disease with mild aortic stenosis, peak 22 and mean 16 mmHg; lwwgyprx-nw-myeiif tricuspid regurgitation; hdir-fk-hrrvphps [place] and MR. 9. Peripheral arterial disease status post CEA. 10. COPD. 11. Obstructive sleep apnea, noncompliant with CPAP. Unit #: [id number] #: [id number] Patient: ROSALINE DEMPSEY 12. Chronic respiratory failure, on O2 at 3 liters. 13. Recent hospitalization at [facility] February 02 to February 08 with acute kidney injury, toxic metabolic encephalopathy and acute systolic congestive heart failure. PAST SURGICAL HISTORY 1. Carotid endarterectomy. 2. Hernia repair. 3. Coronary artery bypass grafting. 4. Permanent pacemaker placement. 5. Hysterectomy. 6. Multiple cardiac stents. 7. Foot surgery. ALLERGIES Adhesive tape and latex. HOME MEDICATIONS 1. Synthroid 175 mcg p.o. daily. 2. Bumex 2 mg p.o. b.i.d. 3. Protonix 40 mg p.o. daily. 4. Effient 10 mg p.o. daily. 5. Losartan 50 mg p.o. daily. 6. Acetazolamide 250 mg p.o. daily. 7. Norvasc 10 mg p.o. daily. 8. Aspirin 81 mg daily. 9. Sertraline 75 mg p.o. daily. 10. Aldactone 25 mg p.o. daily. 11. Zanaflex 4 mg p.o. daily. 12. Albuterol inhaler q.6 hours as needed for shortness of breath. 13. Symbicort 2 puffs inhalation b.i.d. 14. Wellbutrin 150 mg p.o. b.i.d. 15. Coreg 12.5 mg p.o. b.i.d. 16. Ranexa 1,000 mg p.o. b.i.d. 17. Imdur ER 60 mg p.o. b.i.d. 18. Digoxin 125 mcg p.o. daily. 19. Lovastatin 10 mg p.o. daily. 20. Singulair 10 mg p.o. daily. 21. Nitroglycerin 0.4 mg sublingual as needed for chest pain. 22. Albuterol inhaler 2 puffs q.4 hours as needed for shortness of air. 23. NovoLog 70/30 - 10 units subcu daily. 24. NovoLog sliding scale insulin a.c. and h.s. 25. Flomax 0.4 mg p.o. daily. FAMILY HISTORY Her mother had Bright disease and at the age of 38. Her father at the age of 34 of unknown causes. SOCIAL HISTORY The patient lives with her son. She walks with a walker. She is a reformed smoker who quit greater than 20 years ago. She denies alcohol or illicit drug use. PHYSICAL EXAMINATION GENERAL: This is a 71-year-old female resting in bed in no acute distress. VITAL SIGNS: Temp 98.8, heart rate 78, respiratory rate 20, blood pressure 109/50. Height 68 inches, weight 113.5 kg. Unit #: [id number] #: [id number] Patient: ROSALINE DEMPSEY HEENT: Head is atraumatic and normocephalic. Pupils are equal, round and reactive. Mucous membranes are moist. NECK: Supple. Trachea is midline. Negative for JVD. CARDIOVASCULAR: S1, S2. Regular rate and rhythm. LUNGS: Clear. Decreased in bases. Nonlabored respirations. ABDOMEN: Soft, nontender, nondistended. Bowel sounds are active. EXTREMITIES: Pulses are palpable. Bilateral lower extremities 1+ edema. No cyanosis. NEUROLOGIC: Alert and oriented x3. Moves all extremities equally and follows commands without difficulty. DIAGNOSTIC STUDIES LABORATORY RESULTS: Sodium 131, potassium 3.9, chloride 94, BUN 30, creatinine 1.3, glucose 138. Hemoglobin 6.9, hematocrit 22, white blood cell count 4.3, platelets 129. AST 17, ALT 16, alkaline phosphatase 82. PT 14, INR 1.3, PTT 27.7. Sohjl-va-fbpm troponin less than 0.05. BNP 1,652. IMAGING STUDIES: Chest x-ray shows cardiomegaly with no change from chest x-ray on 02/05/2017. CARDIOVASCULAR STUDIES: EKG shows AV paced rhythm with a rate of 66. ASSESSMENT 1. Acute on chronic systolic heart failure with an EF of 30% per echo 02/04/2017. 2. Severe anemia. 3. COPD/obstructive sleep apnea. 4. Valvular heart disease - mild aortic stenosis, ogmeuhdz-qn-bzldta TR and aqte-ay-dawjxgac [place] and MR. 5. Coronary artery disease status post CABG in 2007 and multiple stents. PLAN 1. We will continue gentle diuresis. 2. We will optimized congestive heart failure meds. Please see home medication reconciliation sheet. 3. Scopes today. Monitor hemoglobin and hematocrit. 4. We will consult cardiac rehab. 5. CBC, BMP and troponin in the a.m. Thank you for asking us to see this patient. We appreciate the consult. Dictated by... Shannan Espinoza APRN for Zuleima Boyd/marilee TD: 03/03/2017 12:23 JOB #: [id number] Unit #: [id number] #: [id number] Patient: ROSALINE DEMPSEY CONSULTATION REPORT Page 1 of 1 X X CONSULTATION REPORT
--- NOTE | ~2017-03-02 | HP ---
Unit #: [id number] #: [id number] Patient: ROSALINE DEMPSEY [id number] [address] [place], [place] [address] [id number] I MR#: [id number] NAME: ROSALINE DEMPSEY. ROOM: 301 Age: 71 Sex: F Admission Date: 03/02/2017 : 1945 Attending Physician: Irene Cristina M.D. Primary Care Physician: Swapnil Davison M.D. HISTORY AND PHYSICAL REASON FOR ADMISSION Hemoccult positive, acute drop in hemoglobin. HISTORY OF PRESENT ILLNESS The patient is a 71-year-old female recently admitted to our hospital from February 02, 2017 to February 08, 2017. At that point in time patient had been admitted for acute kidney injury, urinary retention, hypovolemic/cardiogenic shock, toxic-metabolic encephalopathy as well as hyponatremia. She was noted to have a VRE UTI at that point in time and secondary to associated comorbid conditions was transitioned to rehab. After rehab, she states that she was discharged home. While she was at home she felt as though her home was much smaller than rehab and she had difficulty with mobility. She became essentially bedbound. She states that over the past two to three days she has had progressive weakness. She does not really complain of any dyspnea. She states that normally she takes four liters for her history of COPD but she states that she had difficulty staying awake and became very fatigued. Upon initial evaluation it was noted her hemoglobin was 6.9 and she was heme positive. From previous discharge summary I see her baseline hemoglobin is approximately 7.8 to 8.5. I also see through chart summary on February 05, 2017 patient did undergo upper GI endoscopy by Dr. Chowdhury which was completely normal. PAST MEDICAL HISTORY Recent hospital admissions December as well as January, secondary to similar circumstances including weakness and UTIs. Both of those admissions lead to discharge to rehab facilities. 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 PAST SURGICAL HISTORY Carotid endarterectomy, hernia repair, coronary artery bypass graft, pacemaker placement, hysterectomy, cardiac catheterization with subsequent stent placement, foot surgery. SOCIAL HISTORY Patient was recently discharged from [facility] in Unit #: [id number] #: [id number] Patient: ROSALINE DEMPSEY the late part of January to rehab and she was transitioned to home to where she is currently living with her son. She uses a walker normally for ambulation. She is on 4 L. She states that she no longer smokes but in the past she smoked anywhere from lta-co-xpv-and-a-half packs of cigarettes per day yielding an approximate 55-xocl-wipe smoking history. FAMILY HISTORY Reviewed and otherwise negative and noncontributory. ALLERGIES Latex, adhesive tape. HOME MEDICATIONS Through chart review Synthroid, Bumex, Protonix, Effient, losartan, acetazolamide, Norvasc, Rickey chewable, sertraline, Aldactone, Zanaflex, albuterol sulfate, Symbicort, Wellbutrin, carvedilol, Ranexa, Imdur, Digitek, lovastatin, Singulair, sublingual nitroglycerin, Ventolin, Colace, Humibid, Benadryl, Zofran, NovoLog mix, Tylenol. REVIEW OF SYSTEMS Please see above. A 12-point review has been otherwise negative except for those positive pertinent as noted. PHYSICAL EXAMINATION VITAL SIGNS: Temperature is 97.6, pulse 69, respiratory rate 18, blood pressure 108/89. GENERAL APPEARANCE: The patient is a morbidly obese, 71-year-old female lying comfortably in no acute distress. HEAD EXAM: Atraumatic. EAR EXAM: Tympanic membranes do not reveal any erythema and/or injection. NECK EXAM: Supple. UPPER EXTREMITIES: Bilateral upper extremities do reveal numerous bruises which are noted over her skin. RESPIRATORY: Diminished to anterior auscultation. CVS EXAM: S1, S2 audible. No murmur heard. GI/ABDOMEN: Distention noted. Nontender. LOWER EXTREMITY EXAM: Mild 1+ lower extremity edema is noted. No calf tenderness. PSYCHAITRIC EXAM: Patient is at the present time cooperative. NEUROLOGICAL EXAM: Patient is alert and oriented x3 currently. DIAGNOSTIC STUDIES LABORATORY: Initial laboratory studies: Lactic acid 1.2. Cardiac enzyme set negative. Initial urinalysis trace leukocyte esterase, protein noted, otherwise unremarkable. CBC shows a hemoglobin of 6.9. BNP 1652. Sodium 131, creatinine 1.3 with estimated GFR at 40. Arterial blood gasses yield a pH of 7.37, pCO2 of 47. INITIAL ADMISSION DIAGNOSES 1. Dyspnea, multifactorial in etiology, likely secondary to anemia. 2. Hhydg-uc-koijqyq systolic heart failure. 3. Chronic deconditioning. 4. Chronic obstructive pulmonary disease, end stage, as well as restrictive lung disease secondary to elevated body mass index. 5. Anemia. 6. Mild hyponatremia. 7. Mild acute kidney injury. Questionable baseline creatinine. 8. Severe morbid obesity. Unit #: [id number] #: [id number] Patient: ROSALINE DEMPSEY 9. Hypertension. 10. Hyperlipidemia. 11. Mildly positive urinalysis, culture pending. 12. Coronary artery disease. 13. Prior history of systolic heart failure with recent hospital admission requiring dobutamine. 14. Obstructive sleep apnea, likely noncompliant. 15. Peripheral arterial disease. 16. Diabetes. 17. Gastroesophageal reflux disease. 18. Osteoarthritis. PLAN 1. Admission telemetry floor. 2. Clear diet okay. 3. Prior endoscopy reviewed by Dr. Chowdhury. 4. Type and cross transfuse two units, Lasix in between. 5. Bedrest. 6. Fall precautions. 7. Neuro checks. 8. Routine laboratory studies. 9. Urine culture. 10. Initiate Rocephin IV [address] now[address] 11. Dr. Chowdhury consultation. 12. Routine laboratory studies. 13. Symptom management. 14. Consideration for physical and occupational therapy evaluation and/or possible rehab versus long-term placement in consideration of the patient's recurrent hospital admissions. 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 This will be reviewed with family members when they are present. Currently no family members are present at bedside. Dictated by Zuleima Sauceda/andrew TD: 03/02/2017 20:32 JOB #: [id number] HISTORY AND PHYSICAL Page 1 of 1 X Irene Cristina MD X HISTORY AND PHYSICAL
--- NOTE | ~2017-03-02 | BMI ---
[facility] Nutrition Therapy DATE: 03/03/17 Patient: ROSALINE DEMPSEY Physician: AARON Address: [address] [place] [address] Room/Bed: [address] [place] [address], Zip: [place] [address] Admit Date: 03/02/17 Date of : [birth year] Height: 5 2 Weight: 250 113.5 HIGH BMI NOTE: DX: 71 Y.O. FEMALE ADMITTED FOR SOA ANTHROPOMETRICS: 5'2", WT: 250# (114 KG), BMI: 45.7 DIET: CLEAR LIQUID RECOMMENDATIONS: 1. ONCE MEDICALLY FEASIBLE, ADVANCE DIET INDICATED TO CC+HH TO PROMOTE GRADUAL WEIGHT LOSS TOWARDS HEALTHY BMI (19.0-25.0) OR +/-10%IBW RD WILL F/U PER PROTOCOL Respectfully, AMPARO YU MS, RD, LD Food and Nutritional Services [facility] cc: client file
--- NOTE | ~2017-03-02 | EKG ---
PATIENT: ROSALINE DEMPSEY UNIT #: [id number] Ventricular Rate: 62 BPM Atrial Rate: 61 BPM P-R Interval: 136 ms QRS Duration: 128 ms Q-T Interval: 468 ms QTC Calculation(Bezet): 475 ms Calculated R [place]: -54 degrees Calculated T [place]: 144 degrees Diagnosis Line: Atrial-sensed ventricular-paced rhythm Diagnosis Line: Abnormal ECG Diagnosis Line: When compared with ECG of 02-MAR-2017 14:39, Diagnosis Line: Vent. rate has decreased BY 4 BPM Diagnosis Line: Confirmed by BUFFY VITAL MD ([id number]) on Diagnosis Line: 03/05/2017 9:56:32 AM INTERPRETING : CHELSEY
--- NOTE | ~2017-03-02 | OR ---
Unit #: [id number] #: [id number] Patient: ROSALINE DEMPSEY [id number] [address] [place], [place] [address] [id number] I MR#: [id number] NAME: ROSALINE DEMPSEY. ROOM: 575 Date of Procedure: 03/03/2017 Admission Date: 03/02/2017 Surgeon: Damon Chowdhury M.D. : 1945 Attending Physician: Irene Cristina M.D. Primary Care Physician: Swapnil Davison M.D. OPERATIVE REPORT PRIMARY CARE PHYSICIAN Swapnil Davison M.D. PREOPERATIVE DIAGNOSES Acute drop in hemoglobin in Hemoccult-positive patient. PROCEDURES PERFORMED Upper gastrointestinal endoscopy and biopsy as well as colonoscopy up to mid ascending colon. POSTOPERATIVE DIAGNOSES For upper endoscopy: 1. The patient has pre-pyloric antral gastritis as well as multiple polyps in the stomach in the antral area. These are certainly benign. Biopsy was obtained from the antrum for CLOtest. The examination was otherwise normal up to third part of duodenum. For colonoscopy: 1. Small internal hemorrhoids. Otherwise, normal examination up to mid ascending colon. Total cecal intubation was impossible due to frequent looping and the fact that the patient was quite obese and impossible to maneuver in bed. However, it was also felt a high risk maneuver to turn it around and re-scope her with straightening of the loop. RECOMMENDATIONS Please treat the patient with blood transfusions and iron infusions and manage symptomatically. She is at extremely poor surgical risk and extremely high risk for complications due to associated cardiopulmonary comorbidity. SEDATION USED MAC. DESCRIPTION OF PROCEDURE Following detailed explanation of potential risks and complications of an upper endoscopy and a colonoscopy, namely perforation, bleeding, complication related to sedation, the patient was brought to GI lab and laid in the left lateral decubitus position. Lubricated tip of the Olympus video upper endoscope was passed through the bite block into the proximal esophagus under direct vision. The entire esophageal mucosa was examined and appeared normal. Z-line was nicely demarcated, there being no esophagitis. This patient did have a small hiatus hernia and the scope was then advanced into the gastric cavity and the latter was insufflated. Unit #: [id number] #: [id number] Patient: DEMPSEY,ROSALINE A Mucosa of the fundus, body, and antrum was examined. Multiple polyps were seen in the antral area. These were benign hyperplastic polyps. In addition, there were prepyloric antral erythema or erosions indicating antral gastritis. Pylorus was intubated with visualization of the normal duodenal bulb and second and third part of the duodenum. Upon withdrawal and retroflexion, incisura, cardia, and greater curve were examined and biopsy was obtained from the antrum for CLOtest. The scope was then withdrawn into the distal esophagus. The entire esophageal mucosa was examined all the way up to pharynx. No additional findings noted. The examination was then turned by 180 degrees and the patient was positioned for a colonoscopy. A digital rectal examination was performed, which was normal. Lubricated tip of the Olympus video colonoscope was inserted through the anus and advanced under direct vision. The scope was then advanced and passed up to sigmoid into descending colon. No diverticula were noticed in this area. The scope was then navigated all the way up to mid ascending colon past the hepatic flexure. The total cecal intubation was impossible despite abdominal pressure and manipulation, however, it was impossible to get the patient in the supine position due to her morbid obesity. Preparation was fair with good visualization and photodocumentation was obtained. Successive segments of the colonic mucosa were examined upon withdrawal and appeared unremarkable. There being no polyps, mass lesions, AVMs, or diverticula. The patient did have small internal hemorrhoids at anal verge. The scope was then withdrawn and the patient returned to the recovery area. She tolerated the procedure without any postprocedure complications. Dictated by... Zuleima Avery/murphy TD: 03/03/2017 23:09 JOB #: [id number] CC: Zuleima Sauceda M.D. Suresh Alankar, M.D. OPERATIVE REPORT Page 1 of 1 X Damon Chowdhury MD X PROCEDURE OPERATIVE NOTE
--- NOTE | ~2017-03-02 | CO ---
Unit #: [id number] #: [id number] Patient: ROSALINE VIVAR [id number] [address] [address] [id number] MR#: [id number] NAME: ROSALINE VIVAR ROOM: 575 Age: 71 Sex: F Admission Date: 03/02/2017 : 1945 Attending Physician: Irene Cristina M.D. Primary Care Physician: Swapnil Davison M.D. Consultation Date: 03/03/2017 CONSULTATION REPORT PRIMARY CARE PHYSICIAN Swapnil Davison M.D. REASON FOR CONSULTATION Precipitous drop in hemoglobin, possible gastrointestinal bleed. HISTORY OF PRESENT ILLNESS Ms. Vivar is a 71-year-old rather frail white female who was admitted with extreme fatigue and lethargy. The patient has recently presented with a history of acute kidney injury. She has presented with a hemoglobin of 6.9 and since then been transfused 2 units. Her baseline hemoglobin has never gone above 8 in the past 1 month. Her baseline hemoglobin in the past has been about 12. In addition, the patient also has acute kidney injury with a BUN of 30 and creatinine of 1.3. The baseline values being 0.8 and 18. The patient denies any history of hematemesis, melena, or hematochezia. She also has iron studies that suggest iron-deficiency anemia. In addition, she had occult gastrointestinal blood loss. She had an endoscopy in earlier this month that was unremarkable. PAST MEDICAL HISTORY Significant for history of congestive heart failure; coronary artery disease, status post coronary artery bypass graft; insertion of pacemaker; hypertension; hyperlipidemia; ischemic cardiomyopathy with an ejection fraction of 30%; type 2 diabetes; mild aortic stenosis; peripheral arterial disease; COPD; obstructive sleep apnea; chronic respiratory failure; and obesity. . PAST SURGICAL HISTORY Included a pacemaker placement, hysterectomy, foot surgery, herniorrhaphy, and carotid endarterectomy. ALLERGIES She is allergic to adhesive tape and latex. MEDICATIONS Home medications included Synthroid, Bumex, Protonix, Effient, losartan, acetazolamide, Norvasc, Rickey Aspirin, sertraline, Aldactone, Zanaflex, albuterol, Symbicort, Wellbutrin, carvedilol, Ranexa, Imdur, Digitek, lovastatin, Singulair, Ventolin, Colace, Humibid, Benadryl, Zofran, NovoLog insulin, and Tylenol. REVIEW OF SYSTEMS Detailed review of organ systems does not reveal any recent weight loss. Unit #: [id number] #: [id number] Patient: ROSALINE VIVAR No history of fever, chills, or rigors. No history of headache or seizures. There is a history of minimal syncopal symptoms, but no true passing out. No history of dysuria or pyuria. She does have a history of possible hematuria. No history of focal seizures or extremity weakness. PHYSICAL EXAMINATION GENERAL: She is awake, alert, and oriented, and appears quite pale. VITAL SIGNS: Show a temperature of 98.1, pulse 67 per minute and regular, respirations 20, and blood pressure 102/55. She weighs 250 pounds. Her baseline weight is about 216 pounds in the past. HEAD AND NECK: She has moderate pallor. There being no icterus or lymphadenopathy. Grade 1 to 2 pitting peripheral edema. CARDIOVASCULAR: Normal heart sounds. No murmurs. LUNGS: Auscultation of the lungs reveals bilateral diminished symmetric air entry. ABDOMEN: Soft, obese, and nontender. Liver and spleen are not palpable. Bowel sounds normal. DIAGNOSTIC STUDIES LABORATORY RESULTS: Shows an INR of 1.3. Serum chemistry shows a BUN and creatinine of 30 and 1.3. LFTs are normal. Iron studies show low iron and transferrin saturation and high TIBC. B12 and folic acid are normal. Hemoglobin is 6.9, white count is normal, and platelet count is 129. CLINICAL IMPRESSION The patient with history of significant anemia without any overt gastrointestinal bleed. The differential diagnosis includes occult gastrointestinal blood loss as well as possible underlying renal disease. The patient does have significant comorbidity in terms of cardiopulmonary-renal comorbidity because of congestive heart failure with an ejection fraction of 25% as well as chronic obstructive pulmonary disease and obstructive sleep apnea. She is at extremely high risk for surgical procedure and extreme caution will be used in doing a panendoscopy. This will be performed later today. Thank you very much for asking me to see this pleasant woman. I appreciate the consult. Dictated by... Damon Chowdhury M.D. CHON/murphy TD: 03/06/2017 04:08 JOB #: [id number] CONSULTATION REPORT Page 1 of 1 X Damon Chowdhury MD CONSULTATION REPORT
--- NOTE | ~2017-03-02 | EKG ---
PATIENT: ROSALINE DEMPSEY UNIT #: [id number] Ventricular Rate: 66 BPM Atrial Rate: 66 BPM P-R Interval: 122 ms QRS Duration: 132 ms Q-T Interval: 452 ms QTC Calculation(Bezet): 473 ms P [place]: 31 degrees Calculated R [place]: -58 degrees Calculated T [place]: 141 degrees Diagnosis Line: Atrial-sensed ventricular-paced rhythm with Diagnosis Line: occasional AV dual-paced complexes Diagnosis Line: Abnormal ECG Diagnosis Line: When compared with ECG of 02-FEB-2017 18:18, Diagnosis Line: Vent. rate has increased BY 6 BPM Diagnosis Line: Confirmed by ELSY RANKIN MD ([id number]) on Diagnosis Line: 03/03/2017 8:00:42 AM INTERPRETING MD: CHUCHO VAZQUEZ
--- NOTE | ~2017-03-02 | DS ---
Unit #: [id number] #: [id number] Patient: ROSALINE DEMPSEY [id number] [facility]. [place], [place] [address] [id number] I MR#: [id number] NAME: ROSALINE DEMPSEY ROOM: 575 Age: 71 Sex: F Admission Date: 03/02/2017 : 1945 Discharge Date: 03/06/2017 Attending Physician: Irene Cristina M.D. Primary Care Physician: Swapnil Davison M.D. DISCHARGE SUMMARY SUMMARY DATE OF 03/06/2017. REASON FOR ADMISSION Acute drop in hemoglobin. HISTORY OF PRESENT ILLNESS/HOSPITAL COURSE Please refer to history and physical for complete details. The patient essentially is a 71-year-old female who was admitted the early part of January 2017 to our hospital secondary to acute kidney injury, urinary retention, hypovolemic/cardiogenic shock, toxic metabolic encephalopathy, as well as hyponatremia. She was noted to have VRE urinary tract infection at that point. She was eventually transitioned to rehab. Afterward rehab discharged her home. While she was at home, essentially she had increased difficulty with mobility. She became essentially bedbound. She had profound weakness. She presented to the hospital for initial evaluation and was noted that her hemoglobin was 6.9. She was also Hemoccult positive. Initial hospital stay went to appropriate resuscitation. Measurements in regard to decreased hemoglobin including type and crossing and transfusing packed red blood cells. Consultation was also placed to GI services as well. Dr. Chowdhury and associates saw and evaluated the patient. Consultation was also placed to Dr. Heredia of cardiology services secondary to increased shortness of breath as well as eskui-ek-aigxigb systolic heart failure. Medications were optimized initially. She was noted to have initial abnormal urinalysis and she was appropriately stated on IV antibiotics. The patient underwent upper GI endoscopy as well as a lower colonoscopy. Upper GI endoscopy did reveal antral gastritis as well as colonoscopy revealed essentially normal findings with internal hemorrhoids which were noted. It was impossible to navigate into the cecal area. GI services at that point in time signed off. However, it should be noted that postoperatively after colonoscopy was completed, the patient did well in the procedure but she did have very minimal sedation. She did have associated ST depression as well as EKG changes and cardiology services were consulted. Unit #: [id number] #: [id number] Patient: ROSALINE DEMPSEY Cardiology subsequently continued to follow the patient, Dr. Tong and associates. The patient was placed on dobutamine drip secondary to decreased urine output as well as systolic heart failure. On 03/06/2017, after evaluation from cardiology and discussion with the patient's family, the patient's dobutamine drip eventually was discontinued, but secondary to her poor ejection fraction the family was made aware the patient's overall prognosis was poor. Planning was initiated for the patient to be transitioned back to rehab secondary to associated comorbid conditions including systolic heart failure, moderate to severe tricuspid regurgitation, prior history of coronary artery disease, as well as history of endstage chronic obstructive pulmonary disease. On 03/06/2017 the patient underwent stat code blue secondary to the patient collapsing on the floor. Appropriate resuscitative measures were initiated. Unfortunately, the patient at 19:53 on 03/06/2017. FINAL REASON FOR 1. Acute cardiopulmonary arrest. 2. Wbith-jd-iyffrzh systolic heart rate, ejection fraction 30%. 3. Endstage chronic obstructive pulmonary disease, O2 dependent. 4. Anemia, seen on admission. 5. Morbid obesity. 6. Chronic immobility syndrome. 7. Severe valvular heart disease, tricuspid regurgitation. 8. Atrial fibrillation. 9. Prior history of coronary artery disease with prior history of coronary artery bypass grafting. 10. History of hypertension. 11. Chronic lower extremity edema. 12. Hyperlipidemia. Dictated by... Irene Cristina M.D. ANNIE/nury TD: 03/25/2017 11:04 JOB #: [id number] DISCHARGE SUMMARY Page 1 of 1 X Irene Cristina MD X DISCHARGE SUMMARY
--- NOTE | ~2017-03-02 | CR72 ---
[facility] A Service of [facility] & [facility] RADIOLOGY TEXT RESULTS PATIENT: ROSALINE DEMPSEY LOCATION: [facility] 301-01 : [birth year] UNIT #: [id number] AGE: [address]: Irene Cristina MD SEX: F ORDER DR: [id number] [facility] [address] [place], [place] [address] [id number] MR#: [id number] Acc #: [id number] NAME: ROSALINE DEMPSEY : 1945 SEX: F STUDY DATE/TIME: 03/02/2017 14:48 UNIT: [facility] ROOM: STUDY DESCRIPTION: CR Chest Single View Portable Attending Physician: Promise Montesinos M.D. Ordering Physician: Promise Montesinos M.D. Primary Care Physician: Swapnil Davison M.D. MEDICAL IMAGING REPORT This report is preliminary unless electronic signature is present EXAM Portable chest HISTORY Dyspnea with shortness of breath onset over the past week. TECHNIQUE Single AP view of the chest was obtained and compared with 02/05/2017. FINDINGS Cardiomegaly is unchanged. Pacer leads appear satisfactory. The lungs are clear with no suspicious infiltrates noted. Vascular markings are normal, and no pleural fluid is seen. IMPRESSION Cardiomegaly. No active disease. No significant changes since the previous exam. Dictated by... Jg Clark M.D. THIS IS AN ELECTRONICALLY VERIFIED REPORT Jg Clark M.D. at 03/03/2017 7:39 AM Alex TD: 03/02/2017 17:36 JOB #: [id number] MEDICAL IMAGING REPORT Page 1 of 1 COPY
[~2017-03-02 13:28] MED LIST changes: +ACETAZOLAMIDE250 MG PO; +ALBUTEROL2.5 MG/3 M INH; +ALDACTONE25 MG PO; +BAYER CHEWABLE81 MG PO; +BENADRYL25 M3 PO; +BUMEX2 MG PO; +COREG12.5 MG PO; +DIGITEK125 MC1 PO; +DOCUSATE SODIU100 MG PO; +EFFIENT10 MG PO; +HUMIBID-LA600 MG PO; +ICY HOT CREAM35.4 GM TOP; +IMDUR-ER60 M2 PO; +LOSARTAN POTASS50 MG PO; +LOVASTATIN10 MG PO; +MONTELUKAST SOD10 MG PO; +NITROGLYGERIN0.4 MG SL; +NORVASC10 MG PO; +NOVOLOG100 U/ML; +NOVOLOG7030 SUBQ; +PROTONIX PO; +SERTRALINE HCL25 M2 PO; +SYMBICORT INH; +SYNTHROID175 MCG PO; +WELLBUTRIN SR150 M1 PO
[2017-03-02 14:56] LABS: POC - CKMB <1.0 ng/mL (0.0-7.9); POC - TROPONIN <0.05 ng/mL (<=0.05)
[2017-03-02 15:06] LABS: BASOPHIL% 0.5 % (0-2.5); EOSINOPHIL# 0.1 X10e3 (0-0.7); EOSINOPHIL% 2.4 % (0.0-7.0); LYMPHOCYTE# 0.7 X10e3 (1.0-3.5); LYMPHOCYTE% 15.8 % (17.0-45.0); MEAN CELL VOLUME 91.3 FL (83-96); MEAN CORPUSCULAR HEMOGLOBIN 28.5 PG (28-34); MEAN CORPUSCULAR HGB CONC 31.2 g/dL (30-36); MEAN PLATELET VOLUME 9.9 FL (6.5-11.5); MONOCYTE# 0.5 X10e3 (0-1.0); MONOCYTE% 12.2 % (3.0-12.0); NEUTROPHIL# 2.9 X10e3 (1.5-7.1); NEUTROPHIL% 69.1 % (40-75); PLATELET COUNT 129 X10e3 (140-420); RED BLOOD COUNT 2.41 X10e (3.90-5.30); RED CELL DISTRIBUTION WIDTH 22.4 % (11.0-15.5); WHITE BLOOD COUNT 4.3 X10e3 (4.0-10.5)
[2017-03-02 15:07] LABS: INR 1.3; PARTIAL THROMBOPLASTIN TIME 27.7 SECONDS (23.5-31.3)
[2017-03-02 15:08] LABS: DIFF IND YES; HEMOGLOBIN 6.9 gm/dL (12.0-16.0)
[2017-03-02 15:12] LABS: ARTERIAL BLD GAS O2 SATURATION 98.2 % (90.0-100.0); ARTERIAL BLOOD GAS CARBOXY HB 0.9 %sat (0.0-9.0); ARTERIAL BLOOD GAS HCO3 27.6 mmol/L; ARTERIAL BLOOD GAS MET HB 1.1 %sat (0.0-2.0); ARTERIAL BLOOD GAS PCO2 47.1 mmHg (35.0-45.0); ARTERIAL BLOOD GAS pH 7.376 (7.350-7.450)
[2017-03-02 15:15] LABS: ARTERIAL BLOOD GAS ALLEN TEST NORMAL; ARTERIAL BLOOD GAS ART SITE RIGHT RADIAL; ARTERIAL BLOOD GAS DELIVERY NASAL CANNULA; ARTERIAL DRAW? YES
[2017-03-02 15:19] LABS: ALBUMIN SERUM 3.6 g/dL (3.5-5.0); BILIRUBIN, DIRECT 0.2 mg/dL (0.0-0.2); BILIRUBIN,INDIRECT 0.6 mg/dL (0.0-0.9); BILIRUBIN,TOTAL 0.8 mg/dL (0.2-2.0); BUN/CREATININE RATIO 23.07; CALCIUM SERUM 8.1 mg/dL (8.4-10.2); CREATININE SERUM 1.3 mg/dL (0.6-1.4); GLOM FILT RATE Estimated 40.7 mL/min (>60); MAGNESIUM 2.1 mg/dL (1.6-3.0); POTASSIUM 3.9 mmol/L (3.5-5.1); PROTEIN TOTAL SERUM 6.1 g/dL (6.0-8.3)
[2017-03-02 15:32] LABS: ANISOCYTOSIS MOD; PLATELET ESTIMATE DECREASED (NORMAL); POIKILOCYTOSIS MOD
[2017-03-02 15:33] LABS: ELLIPTOCYTES PRESENT; OVALOCYTES PRESENT; POLYCHROMASIA SL; SCHISTOCYTES PRESENT
[2017-03-02 15:34] LABS: HYPOCHROMIA MOD
[2017-03-02 16:12] LABS: URINE SOURCE CLEAN CATCH
[2017-03-02 16:26] LABS: URINE APPEARANCE CLEAR; URINE BILIRUBIN NEG (NEG); URINE BLOOD NEG (NEG); URINE COLOR DK YELLOW; URINE GLUCOSE NEG (NEG); URINE KETONE NEG (NEG); URINE LEUKOCYTE ESTERASE TRACE (NEG); URINE NITRATE NEG (NEG); URINE PROTEIN TRACE (NEG); URINE SPECIFIC GRAVITY 1.014 (1.003-1.035)
[2017-03-02 16:30] LABS: URBCS1 AUWI 0-2 /[HPF] (0-2); URINE BACTERIA AUWI NEG (NEGATIVE); URINE SQUAMOUS EPITHELIAL CELL NONE SEEN /[HPF]; UWBCS1 AUWI 0-2 (0-5)
[2017-03-02 16:37] LABS: CULTURE INDICATED? NO
[2017-03-02] MEDS ORDERED: FLOMAX0.4 M1 PO (16:39)
[2017-03-02 16:41] LABS: POC - CKMB <1.0 ng/mL (0.0-7.9); POC - TROPONIN <0.05 ng/mL (<=0.05)
[2017-03-04 05:20] LABS: HEMATOCRIT 26.8 % (35.0-45.0); HEMOGLOBIN 8.3 gm/dL (12.0-16.0); MEAN CELL VOLUME 90.8 FL (83-96); MEAN CORPUSCULAR HEMOGLOBIN 28.3 PG (28-34); MEAN CORPUSCULAR HGB CONC 31.1 g/dL (30-36); MEAN PLATELET VOLUME 9.6 FL (6.5-11.5); RED BLOOD COUNT 2.95 X10e (3.90-5.30); RED CELL DISTRIBUTION WIDTH 21.2 % (11.0-15.5); WHITE BLOOD COUNT 4.9 X10e3 (4.0-10.5)
[2017-03-04 06:56] LABS: THYROID STIMULATING HORMONE 2.02 uIU/ml (0.34-5.60)
[2017-03-04 07:01] LABS: FREE THYROXIN (T4) 0.73 ng/dL (0.58-1.64)
[2017-03-04 07:06] LABS: BUN/CREATININE RATIO 22.85; CALCIUM SERUM 8.1 mg/dL (8.4-10.2); CREATININE SERUM 1.4 mg/dL (0.6-1.4); GLOM FILT RATE Estimated 37.2 mL/min (>60); POTASSIUM 4.8 mmol/L (3.5-5.1)
[2017-03-05 05:28] LABS: HEMATOCRIT 26.4 % (35.0-45.0); HEMOGLOBIN 8.3 gm/dL (12.0-16.0); MEAN CELL VOLUME 90.5 FL (83-96); MEAN CORPUSCULAR HEMOGLOBIN 28.4 PG (28-34); MEAN CORPUSCULAR HGB CONC 31.4 g/dL (30-36); MEAN PLATELET VOLUME 8.9 FL (6.5-11.5); RED BLOOD COUNT 2.92 X10e (3.90-5.30); RED CELL DISTRIBUTION WIDTH 21.7 % (11.0-15.5); WHITE BLOOD COUNT 4.2 X10e3 (4.0-10.5)
[2017-03-05 05:59] LABS: BUN/CREATININE RATIO 27.27; CALCIUM SERUM 8.4 mg/dL (8.4-10.2); CREATININE SERUM 1.1 mg/dL (0.6-1.4); GLOM FILT RATE Estimated 49.8 mL/min (>60); MAGNESIUM 2.2 mg/dL (1.6-3.0); POTASSIUM 4.9 mmol/L (3.5-5.1)
[2017-03-05 10:58] LABS: URINE APPEARANCE CLEAR; URINE BILIRUBIN NEG (NEG); URINE BLOOD 1+ (NEG); URINE COLOR YELLOW; URINE GLUCOSE NEG (NEG); URINE KETONE NEG (NEG); URINE LEUKOCYTE ESTERASE TRACE (NEG); URINE NITRATE NEG (NEG); URINE PROTEIN 2+ (NEG); URINE SPECIFIC GRAVITY 1.013 (1.003-1.035); URINE UROBILINOGEN 0.2 MG/DL (NEG)
[2017-03-05 11:02] LABS: URINE BACTERIA AUWI NEG (NEGATIVE); URINE SQUAMOUS EPITHELIAL CELL OCC /[HPF]
[2017-03-05 11:13] LABS: URINE GRANULAR CAST 0-2 /[HPF]; URINE MUCUS PRESENT
[2017-03-05 11:14] LABS: URINE TRANSITIONAL EPI CELLS FEW /[HPF]
[2017-03-06 06:54] LABS: CALCIUM SERUM 7.9 mg/dL (8.4-10.2); CREATININE SERUM 1.4 mg/dL (0.6-1.4); GLOM FILT RATE Estimated 37.2 mL/min (>60); POTASSIUM 4.5 mmol/L (3.5-5.1)
[2017-03-06 09:47] LABS: HEMATOCRIT 26.8 % (35.0-45.0); HEMOGLOBIN 8.4 gm/dL (12.0-16.0); MEAN CELL VOLUME 90.8 FL (83-96); MEAN CORPUSCULAR HEMOGLOBIN 28.5 PG (28-34); MEAN CORPUSCULAR HGB CONC 31.4 g/dL (30-36); MEAN PLATELET VOLUME 8.9 FL (6.5-11.5); RED BLOOD COUNT 2.96 X10e (3.90-5.30); RED CELL DISTRIBUTION WIDTH 21.8 % (11.0-15.5); WHITE BLOOD COUNT 4.4 X10e3 (4.0-10.5)
== END 2017-03-06 22:25 | disposition expired | DRG 377 ==
LOC: CED 13:28 → CEDOF 17:20 → C3A PCU 17:20 → CED 18:07 → CEDOF 18:07 → C3A PCU 18:07 → CEDOF 19:54 → C3A PCU 19:54 → C5C 03-03 18:37
PROVIDERS: Family Medicine; Internal Medicine Cardiovascular Disease; Internal Medicine Gastroenterology; Student in an Organized Health Care Education/Training Program
PROC: 30233N1 Transfusion of Nonautologous Red Blood Cells into Peripheral Vein, Percutaneous Approach (ICD-10-PCS; 2017-03-02)
PROC: 0DB78ZX Excision of Stomach, Pylorus, Via Natural or Artificial Opening Endoscopic, Diagnostic (ICD-10-PCS; principal; 2017-03-03 15:30)
PROC: 0DJD8ZZ Inspection of Lower Intestinal Tract, Via Natural or Artificial Opening Endoscopic (ICD-10-PCS; 2017-03-03 15:30)
DX: K92.1 Melena (principal); I50.23 Acute on chronic systolic (congestive) heart failure; R57.0 Cardiogenic shock; I21.4 Non-ST elevation (NSTEMI) myocardial infarction; N17.9 Acute kidney failure, unspecified; J96.10 Chronic respiratory failure, unspecified whether with hypoxia or hypercapnia; I95.9 Hypotension, unspecified; I08.3 Combined rheumatic disorders of mitral, aortic and tricuspid valves; I11.0 Hypertensive heart disease with heart failure; N39.0 Urinary tract infection, site not specified; E87.1 Hypo-osmolality and hyponatremia; Z68.42 Body mass index [BMI] 45.0-49.9, adult; D64.9 Anemia, unspecified; Z99.81 Dependence on supplemental oxygen; Z87.891 Personal history of nicotine dependence; J44.9 Chronic obstructive pulmonary disease, unspecified; E66.01 Morbid (severe) obesity due to excess calories; J98.4 Other disorders of lung; E78.5 Hyperlipidemia, unspecified; I25.10 Atherosclerotic heart disease of native coronary artery without angina pectoris; Z95.5 Presence of coronary angioplasty implant and graft; G47.33 Obstructive sleep apnea (adult) (pediatric); Z91.19 Patient's noncompliance with other medical treatment and regimen; I73.9 Peripheral vascular disease, unspecified; E11.9 Type 2 diabetes mellitus without complications; Z79.4 Long term (current) use of insulin; K21.9 Gastro-esophageal reflux disease without esophagitis; M19.90 Unspecified osteoarthritis, unspecified site; Z95.1 Presence of aortocoronary bypass graft; Z95.0 Presence of cardiac pacemaker; I25.5 Ischemic cardiomyopathy; Z90.710 Acquired absence of both cervix and uterus; Z91.040 Latex allergy status; K31.7 Polyp of stomach and duodenum; K64.8 Other hemorrhoids; E03.9 Hypothyroidism, unspecified; K29.70 Gastritis, unspecified, without bleeding; I48.91 Unspecified atrial fibrillation
CPT/HCPCS: 36415; 36600; 51701; 71010; 80048; 80076; 81003; 82553; 82803; 82947; 83605; 83735; 83880; 84439; 84443; 84484; 85025; 85027; 85610; 85730; 86850; 86900; 86901; 86923; 87040; 87077; 87086; 92950; 93005; 94640; 94760; 96374; 97116; 97163; 97167; 97530; 97535; 99285; C9113; G8978-GP; G8979-GP; G8987-GO; G8988-GO; J0171; J0696; J1250; J1815; J1940; J2060; J2370; J2405; J2916; J2920; P9016